=== PATIENT | female | born 1960 | race American Indian/Alaskan Native ===

== ENCOUNTER 2016-07-12 05:56 | Day surgery (SDC) | payer MEDICARE ==
--- NOTE | 2016-07-10 11:46 | Anesthesia Consultation ---
Anesthesia Consult and Med Hx Date of service: 07/10/16 (Scheduled for on 07/12/16) - Airway Anesthetic Teeth Evaluation: Partials (upper) ROM Head & Neck: Adequate Mental/Hyoid Distance: Adequate Mallampati Class: Class II Intubation Access Assessment: Probably Good - Pulmonary Exam CTA: Yes - Cardiac Exam Cardiac Exam: RRR - Pre-Operative Health Status ASA Pre-Surgery Classification: ASA3 Proposed Anesthetic Plan: General - Pre-Anesthesia Comment Pre-Anesthesia Comments: No previous anesthesia complications. - Pulmonary Hx Smoking: No Hx Asthma: No - Cardiovascular System Hx Hypertension: Yes (x 25 yrs) Hx Heart Attack/AMI: Yes ("mild" ? when) Hx Heart Murmur: Yes - Central Nervous System Hx Seizures: Yes (as a reaction to a medicine 2 yrs ago, no meds) CVA: No Hx Psychiatric Problems: No - Gastrointestinal Hx Gastroesophageal Reflux Disease: Yes - Endocrine Hx Renal Disease: Yes (CKD Stage III) Hx Non-Insulin Dependent Diabetes: No Hx Thyroid Disease: No - Hematic Hx Anemia: No - Other Systems Hx Alcohol Use: Yes (occas) Hx Substance Use: No Hx Cancer: No Hx Obesity: No - Additional Comments Anesthesia Medical History Comments: Reviewed last cardiology OV note on 2014. Pt was having multiple complaints including syncope, palpitations and chest pressure. She had normal Echo and stress test in 2012. No furhter cardiac work up was recommended. Pt denies chest pain or SOB.
[2016-07-10 12:29] LABS: Basophils % (Auto) 0.8 % (0.0-1.8); Eosinophils % (Auto) 1.6 % (0.0-4.3); Hematocrit 36.7 % (30.3-42.9); Hemoglobin 11.7 gm/dl (10.1-14.3); Mean Corpuscular HGB Conc 32 % (30-34); Mean Corpuscular Hemoglobin 28 pg (28-32); Mean Corpuscular Volume 89 fl (79-97); Platelet Count 317 K/mm3 (140-440); Red Blood Count 4.13 M/mm3 (3.65-5.03); Red Cell Distribution Width 15.6 % (13.2-15.2); White Blood Count 9.8 K/mm3 (4.5-11.0)
[2016-07-10 12:47] LABS: Albumin 3.9 g/dL (3.9-5); Albumin/Globulin Ratio 1.4 %; Bilirubin,Total 0.2 mg/dL (0.1-1.2); Chloride 106.5 mmol/L (98-107); Potassium 4.4 mmol/L (3.6-5.0); Total Protein 6.7 g/dL (6.3-8.2)
[2016-07-12] MEDS ORDERED: PERCOCET 5/325 PO PRN (07:02)
[2016-07-12] MEDS ORDERED: DILAUDID IV PRN (07:02)
[2016-07-12] MEDS ORDERED: ZOFRAN IV PRN (07:02)
[2016-07-12] MEDS ORDERED: NACL 0.9% 1000 ML 1,000 ML ONE (07:47)
[2016-07-12] MEDS ORDERED: VERSED IV NR (08:00)
[2016-07-12] MEDS ORDERED: PEPCID PO NR (08:00)
[2016-07-12] MEDS ORDERED: NEURONTIN PO NR (08:00)
[2016-07-12] MEDS ORDERED: NACL 0.9% 1000 ML 1,000 ML IV SCH (08:00)
[2016-07-12] MEDS ORDERED: DECADRON ONE (08:03)
[2016-07-12] MEDS ORDERED: DIPRIVAN 10 MG/ML IV ONE (08:03)
[2016-07-12] MEDS ORDERED: XYLOCAINE MPF 2% ONE (08:03)
[2016-07-12] MEDS ORDERED: DILAUDID ONE (08:04)
[2016-07-12] MEDS ORDERED: ZOFRAN ONE (08:05)
[2016-07-12] MEDS ORDERED: SILVER NITRATE TP ONE ×3 (09:46→09:49)
[2016-07-12] MEDS ORDERED: NACL 0.9% IR ONE (09:49)
--- NOTE | 2016-07-12 10:26 | Operative Report ---
Operative Report Operative Report: PREOPERATIVE DIAGNOSIS: postmenopausal bleeding POSTOPERATIVE DIAGNOSIS: Postmenopausal bleeding PROCEDURE: D&C and hysteroscopy. ESTIMATED BLOOD LOSS: Minimal. COMPLICATIONS: None. ANESTHESIA: Spinal. SPECIMEN: ECC and EMC. FINDINGS: Second endometrial lining, scant polypoid tissue, bilateral ostia visualized. PROCEDURE IN DETAIL: This is a 55 yo lady with postmenopsausal bleeding and thickened endometrial lining. Risks, benefits and alternatives discussed with the patient at length. Informed consent was obtained. The patient was taken to the operating room. General anesthesia was obtained without difficulty. She was then prepped and draped in the lithotomy position in [facility]. Examination under anesthesia revealed a small anteverted uterus. No adnexal masses were palpable. A bivalve speculum was placed inside the vagina. The anterior lip of the cervix grasped with single-tooth tenaculum. The cervix was gently dilated to ensure reduction with diagnostic hysteroscope. The hysteroscope was introduced into the uterine fundus. Both ostia were easily visualized. The cavity appeared fluffy . There was some thickening of endometrium with some scant polypoid tissue on the posterior wall. The hysteroscope was removed. Sharp curettage followed. Tissue was obtained. There was polypoid tissue noted in the specimen. All instruments removed from the vagina. Hemostasis was achieved. The patient was awakened and taken to the recovery room in stable condition
--- NOTE | 2016-07-12 10:38 | Discharge Summary ---
Providers - Providers Date of discharge: 07/12/16 Attending physician: STACY RUEDA MD Primary care physician: LINDA BISWAS Hospitalization Reason for admission: other (surgery: postmenopausal bleeding ) Procedure: other (D&C and hysteroscopy ) Episiotomy: none Laceration: none Hospital course: This is a 55 yo postmenopausal D&C and Hysteroscopy see OP report d/c home Condition at discharge: Good Disposition: DISCHARGED TO HOME OR SELFCARE Plan - Discharge Medications Prescriptions: Ibuprofen [Motrin] 600 mg PO Q8H PRN #30 tablet PRN Reason: Pain oxyCODONE /ACETAMINOPHEN [Percocet 5/325] 1 tab PO Q6HR PRN #30 tablet PRN Reason: Pain - Provider Discharge Summary Activity: no sex for 6 weeks Diet: routine Instructions: routine Additional instructions: [] Smoking cessation referral if applicable(refer to patient education folder for contact #) [] Refer to [facility]'s [facility] Booklet Call your doctor immediately for: * Fever > 100.5 * Heavy vaginal bleeding ( >1 pad per hour) * Severe persistent headache * Shortness of breath * Reddened, hot, painful area to leg or breast * Drainage or odor from incision. * Keep incision clean and dry at all times and follow doctor's instructions regarding bathing/showering - Follow up plan Follow up: LINDA BISWAS MD [Primary Care Provider] - 7 Days STACY RUEDA MD [Staff Physician] - 7 Days
[2016-07-12 11:28] VITALS: BP 145/85
[2016-07-16] MEDS ORDERED: ZOFRAN IV NR (06:00)
[2016-07-16] MEDS ORDERED: TRANSDERM-SCOP TD NR (06:00)
== END 2016-07-12 12:00 | disposition home or self-care (01) ==
LOC: OR 05:56
PROVIDERS: ATTEND Obstetrics & Gynecology
DX: N95.0 Postmenopausal bleeding (principal); I12.9 Hypertensive chronic kidney disease with stage 1 through stage 4 chronic kidney disease, or unspecified chronic kidney disease; N18.3 Chronic kidney disease, stage 3 (moderate); K21.9 Gastro-esophageal reflux disease without esophagitis; Z72.89 Other problems related to lifestyle
CPT/HCPCS: 36415; 58558; 80053; 85025; 88305; J1100; J1170; J2250; J2405; J2704; J7030